=== PATIENT | female | born 1990 | race Hispanic/Latino ===

== ENCOUNTER → 2025-03-07 | Outpatient (CLI) | payer OTHER ==
[2025-03-07 09:58] LABS: INR 0.98 (0.85-1.15)
--- NOTE | 2025-03-07 10:45 | NUR ---
ULTRASOUND GUIDED RIGHT BREAST BIOPSY PROCEDURE PERFORMED BY DR. MADDIE MILLAN. PUNCTURE SITE RIGHT BREAST AT 11 O'CLOCK AND PATIENT TOLERATED PROCEDURE WELL. SPECIMEN X 3 COLLECTED AND SENT TO LAB. END OF PROCEDURE AT 1035. BIOPSY NEEDLE REMOVED, TISSUE MARKER DEPLOYED AND DRESSING APPLIED. NO BLEEDING NOTED. TISSUE MARKER VERIFIED VIA MAMMOGRAM ORDERED DR. MILLAN. DISCHARGE INSTRUCTIONS GIVEN TO PATIENT AND VERBALIZED UNDERSTANDING. DISCHARGED VIA AMBULATORY AAO X3 WITH NO C/O PAIN ACCOMPANIED BY SENIOR CARE OFFICERS.
--- NOTE | 2025-03-07 14:24 | HMCIMG ---
PERCUTANEOUS ULTRASOUND-GUIDED BIOPSY OF right BREAST MASS: CLINICAL HISTORY: This is a 34 [id number] female with right for ultrasound-guided biopsy. The risk and benefit was explained to the patient. The risks include bleeding and infection. The patient consented to the procedure. Procedure: Under ultrasound guidance right breast mass measuring 2.94 x 2.80 cm. was localized. After sterile prep and drape, 1% Xylocaine was used for local anesthetic. Using a 14-gauge Bard gun a total of 3 core biopsy was obtained. The postbiopsy a biopsy marker was placed at the biopsy site. Specimen was sent for histology and cell block. Patient tolerated procedure well. IMPRESSION: FINAL ASSESSMENT: Post-procedure Mammogram for Marker Placement. 1. PERCUTANEOUS ULTRASOUND-GUIDED BIOPSY OF right BREAST WITH SPECIMENS SENT FOR HISTOLOGY AND CELL BLOCK. THE PATIENT TOLERATED PROCEDURE WELL. PATHOLOGY REPORT IS PENDING. 2. PATIENT IS TO HAVE A POST BIOPSY MARKER PLACEMENT UNILATERAL right BREAST MAMMOGRAM.
--- NOTE | 2025-03-07 14:27 | HMCIMG ---
DIGITAL right breast DIAGNOSTIC MAMMOGRAM Technique: The digital mammographic examination of right breast in craniocaudal, mediolateral oblique views along with CAD was obtained. History: This is a 34 years year-old female who underwent right breast biopsy under ultrasound guidance. With placement of a biopsy marker. Patient has no family history of breast cancer. Patient has no complaint Reference:None available. Breast composition: Breast composition C: The breasts are heterogeneously dense, which may obscure small masses. Finding: The digital mammographic examination of right breast in craniocaudal and mediolateral oblique view along with CAD demonstrates to be moderately dense. There are 2 biopsy marker seen in right breast at 11:00 in satisfactory position.. There is no evidence of any dendritic mass, cluster microcalcification or architectural distortion. The retromammary fat appears to be normal. IMPRESSION: Post right breast biopsy with 2 marker in satisfactory position 11:00. The pathology report is pending FINAL ASSESSMENT: Post-procedure Mammogram for Marker Placement. NOTE: IF A WORK-UP OF THIS PATIENT LEADS TO A BIOPSY, PLEASE FORWARD A COPY OF THE PATHOLOGY REPORT TO OUR OFFICE REQUIRED BY [employer] DECEMBER 22, 1993. A NEGATIVE MAMMOGRAM SHOULD NOT PRECLUDE BIOPSY OF A CLINICALLY PALPABLE SUSPICIOUS MASS, 10% OF BREAST CANCERS ARE MAMMOGRAPHICALLY OCCULT. THIS MAMMOGRAPHY FACILITY IS FULLY ACCREDITED BY THE [employer]OD AND [employer]UG [employer] (FDA). THANK YOU FOR THIS REFERRAL.
== END ==
LOC: RAH 08:38 → EEVIPCON 10:00
PROVIDERS: ATTEND Student in an Organized Health Care Education/Training Program
DX: N63.11 Unspecified lump in the right breast, upper outer quadrant (principal); D24.1 Benign neoplasm of right breast; Z98.891 History of uterine scar from previous surgery
CPT/HCPCS: 19083; 77065; 85610; 85730; 36415; 88305; A4215 ×2